=== PATIENT | female | born 1945 | race Caucasian/White ===

== ENCOUNTER 2019-02-08 20:29 | Emergency (ER) | payer MEDICARE, BC ==
[2019-02-08] MEDS ORDERED: Sodium Chloride 0.9% 10 ML Syringe FLUSH PRN (21:21)
[2019-02-08] MEDS ORDERED: methylPREDNISolone Sodium Succinate 125 MG/2 ML SDV IVPUSH ONE (21:23)
--- NOTE | 2019-02-08 22:04 | EDM.PDOC ---
ED HPI GENERAL MEDICAL PROBLEM - General Stated Complaint: SOB Time Seen by Provider: 02/08/19 20:50 Source of Information: Reports: Patient History Limitations: Reports: No Limitations - History of Present Illness INITIAL COMMENTS - FREE TEXT/NARRATIVE: 73-year-old female who reports cough with some difficulty breathing off and on for quite some time. She has seen her doctor in regard to this and was placed on inhalers for COPD. She reports that these inhalers have been helping. However , she feels that her cough has been somewhat worse over the past week and particularly was worse last night. She felt okay today and did her normal work. This afternoon she used her riding lawnmower and cut her grass and after this she began to knows that her breathing was worse and it got progressively worse with time and did not improve with her inhaler or with rest. It was to the point where she felt that she could not breathe and 911 was called. EMS arrived and found the patient with an O2 saturation of 79% on room air, with wheezes and with marked difficulty breathing. She was awake and alert. She was given nebulizer treatment there and en route and by the time that she arrived she was feeling much improved with decreased work of breathing. Her O2 saturations on nasal cannula at or liters per minute was 99-100%. She had no chest pain. She had no abdominal pain. She had no nausea or vomiting. She's had no arm or leg pains. No neck or jaw pain. In fact, she reports she has no pain at this time, rating it as a 0/10. There are no other associated signs or symptoms. There are no other modifying factors. 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 Treatments, Oxygen - Related Data Allergies Allergy/AdvReac Type Severity Reaction Status Date / Time No Known Allergies Allergy Verified 02/08/19 21:21 Home Meds: Home Meds ALPRAZolam [Xanax] 0.5 mg PO BID PRN 02/08/19 [History] Albuterol Sulfate [Proair Hfa] 1 puff IH Q4H PRN 02/08/19 [History] Escitalopram [Lexapro] 10 mg PO DAILY 02/08/19 [History] Metoprolol Succinate [Toprol XL] 25 mg PO DAILY 02/08/19 [History] Propylene Glycol/PEG 400/Pf [Systane 0.3-0.4% Eye Drops] 1 each OP ASDIRECTED PRN 02/08/19 [History] Umeclidinium Brm/Vilanterol Tr [Anoro Ellipta 62.5-25 MCG] 1 puff INH DAILY [History] Warfarin [Coumadin] 2.5 mg PO DAILY 02/08/19 [History] Warfarin [Coumadin] 5 mg PO SUMOWEFRSA 02/08/19 [History] atorvaSTATin [Lipitor] 20 tab PO DAILY 02/08/19 [History] Past Medical History Cardiovascular History: Reports: Afib (On Coumadin), High Cholesterol, Hypertension Respiratory History: Reports: COPD, Other (See Below) (No previous intubations.) Hematologic History: Reports: Anticoagulation Therapy (On Coumadin) Oncologic (Cancer) History: Reports: Breast - Past Surgical History Female Surgical History: Reports: Mastectomy (Right mastectomy) Social & Family History - Tobacco Use Smoking Status *Q: Current Every Day Smoker - Alcohol Use Alcohol Use History: Yes Alcohol Use Frequency: Daily (She drinks at least one beer a day and sometimes more.) - Living Situation & Occupation Social History Comment: She is here with multiple family members. She arrives via ambulance. ED ROS GENERAL - Review of Systems Review Of Systems: See Below Constitutional: Reports: Weakness (Associated with this episode of difficulty breathing.) HEENT: Reports: No Symptoms Respiratory: Reports: Shortness of Breath, Wheezing, Cough Cardiovascular: Reports: Lightheadedness Endocrine: Reports: No Symptoms GI/Abdominal: Reports: No Symptoms : Reports: No Symptoms Musculoskeletal: Reports: No Symptoms Skin: Reports: Diaphoresis (With this episode) Neurological: Reports: No Symptoms Hematologic/Lymphatic: Reports: Easy Bleeding (On chronic anticoagulation with Coumadin) Immunologic: Reports: No Symptoms ED EXAM, GENERAL - Physical Exam Exam: See Below Exam Limited By: No Limitations General Appearance: Alert, WD/WN, Mild Distress Eye Exam: Bilateral Eye: EOMI, Normal Inspection, PERRL Ears: Normal External Exam, Hearing Grossly Normal Nose: Normal Inspection, Normal Mucosa Throat/Mouth: Normal Inspection, Normal Voice, No Airway Compromise Head: Atraumatic, Normocephalic Neck: Normal Inspection, Supple, Non-Tender, Full Range of Motion Respiratory/Chest: No Accessory Muscle Use, Chest Non-Tender, Respiratory Distress (Mild), Wheezing (Bilaterally with decreased air movement. No retractions.) Cardiovascular: Normal Peripheral Pulses, Regular Rate, Rhythm, No Gallop, No JVD Peripheral Pulses: 2+: Radial (L), Radial (R), Dorsalis Pedis (L), Dorsalis Pedis (R) GI/Abdominal: Normal Bowel Sounds, Soft, Non-Tender, No Organomegaly, No Distention, No Mass Back Exam: Normal Inspection Extremities: Normal Inspection, Normal Range of Motion, Non-Tender, No Pedal Edema, Normal Capillary Refill Neurological: Alert, Oriented, CN II-XII Intact, Normal Cognition, No Motor/ Sensory Deficits Skin Exam: Warm, Dry, Intact, Normal Color, No Rash Lymphatic: No Adenopathy EKG INTERPRETATION EKG Date: 02/08/19 Time: 21:33 Rhythm: Other (sinus arrythmia) Rate (Beats/Min): 84 Grants: Normal P-Wave: Present QRS: Normal ST-T: Normal QT: Normal EKG Interpretation Comments: Normal sinus rhythm with a rate of 84. There is a normal axis. There are normal intervals including a normal EKG. There is slight sinus arrhythmia. There is no current of injury or ischemia present. Course - Orders/Labs/Meds Orders: Active Orders 24 hr Category Date Time Status EKG Documentation Completion [RC] ASDIRECTED Care 02/08/19 21:23 Active Chest 1V Frontal [CR] Stat Exams 02/08/19 21:21 Taken Sodium Chloride 0.9% [Saline Flush] Med 02/08/19 21:21 Active 10 ml FLUSH ASDIRECTED PRN Peripheral IV Insertion Adult [OM.PC] Routine Oth 02/08/19 21:21 Ordered EKG 12 Lead [EK] Routine Ther 02/08/19 21:21 Ordered Medication Orders Sodium Chloride (Saline Flush) 10 ml FLUSH ASDIRECTED PRN PRN Reason: Keep Vein Open Last Admin: 02/08/19 22:19 Dose: 10 ml Labs: Laboratory Tests 02/08/19 02/08/19 02/08/19 Range/Units 20:35 20:35 20:35 WBC 23.8 H (4.5-12.0) X10-3/uL RBC 4.79 (3.23-5.20) x10(6)uL Hgb 15.6 H (11.5-15.5) g/dL Hct 45.2 (30.0-51.3) % MCV 94.2 (80-96) fL MCH 32.6 (27.7-33.6) pg MCHC 34.6 (32.2-35.4) g/dL RDW 13.3 (11.5-15.5) % Plt Count 399 H (125-369) X10(3)uL MPV 8.3 (7.4-10.4) fL Neut % (Auto) Nuclear Physician Lymph % (Auto) Nuclear Physician [place] % (Auto) Nuclear Physician Eos % (Auto) Nuclear Physician Baso % (Auto) Nuclear Physician Neut # (Auto) Nuclear Physician Lymph # (Auto) Nuclear Physician [place] # (Auto) Nuclear Physician Eos # (Auto) Nuclear Physician Baso # (Auto) Nuclear Physician Add Manual Diff Yes Neutrophils % (Manual) 81 (46-82) % Band Neutrophils % 4 (0-6) % Lymphocytes % (Manual) 10 L (13-37) % Monocytes % (Manual) 3 L (4-12) % Eosinophils % (Manual) 1 (0-5) % Basophils % (Manual) 1 (0-2) % PT 13.1 H (8.7-11.1) INR 1.35 H (0.89-1.13) Sodium 140 (135-145) mmol/L Potassium 4.1 (3.5-5.3) mmol/L Chloride 103 (100-110) mmol/L Carbon Dioxide 30 (21-32) mmol/L BUN 20 H (7-18) mg/dL Creatinine 0.4 L (0.55-1.02) mg/dL Est Cr Clr Drug Dosing TNP Estimated GFR (MDRD) > 60 (>60) BUN/Creatinine Ratio 50.0 H (9-20) Glucose 157 H (80-116) mg/dL Calcium 9.1 (8.6-10.2) mg/dL Total Bilirubin 0.5 (0.1-1.3) mg/dL AST 29 H (5-25) IU/L ALT 51 H (12-36) U/L Alkaline Phosphatase 82 (56-112) IU/L Troponin I (<0.017-0.056) ng/mL NT-Pro-B Natriuret Pep (<=125) pg/mL Total Protein 7.5 (6.0-8.0) g/dL Albumin 4.3 (3.2-4.6) g/dL Globulin 3.2 g/dL Albumin/Globulin Ratio 1.3 02/08/19 Range/Units 20:35 WBC (4.5-12.0) X10-3/uL RBC (3.23-5.20) x10(6)uL Hgb (11.5-15.5) g/dL Hct (30.0-51.3) % MCV (80-96) fL MCH (27.7-33.6) pg MCHC (32.2-35.4) g/dL RDW (11.5-15.5) % Plt Count (125-369) X10(3)uL MPV (7.4-10.4) fL Neut % (Auto) Lymph % (Auto) [place] % (Auto) Eos % (Auto) Baso % (Auto) Neut # (Auto) Lymph # (Auto) [place] # (Auto) Eos # (Auto) Baso # (Auto) Add Manual Diff Neutrophils % (Manual) (46-82) % Band Neutrophils % (0-6) % Lymphocytes % (Manual) (13-37) % Monocytes % (Manual) (4-12) % Eosinophils % (Manual) (0-5) % Basophils % (Manual) (0-2) % PT (8.7-11.1) INR (0.89-1.13) Sodium (135-145) mmol/L Potassium (3.5-5.3) mmol/L Chloride (100-110) mmol/L Carbon Dioxide (21-32) mmol/L BUN (7-18) mg/dL Creatinine (0.55-1.02) mg/dL Est Cr Clr Drug Dosing Estimated GFR (MDRD) (>60) BUN/Creatinine Ratio (9-20) Glucose (80-116) mg/dL Calcium (8.6-10.2) mg/dL Total Bilirubin (0.1-1.3) mg/dL AST (5-25) IU/L ALT (12-36) U/L Alkaline Phosphatase (56-112) IU/L Troponin I 0.095 H* (<0.017-0.056) ng/mL NT-Pro-B Natriuret Pep 317 H (<=125) pg/mL Total Protein (6.0-8.0) g/dL Albumin (3.2-4.6) g/dL Globulin g/dL Albumin/Globulin Ratio Meds: Medications Generic Name Dose Route Start Last Admin Trade Name Freq PRN Reason Stop Dose Admin Sodium Chloride 10 ml 02/08/19 21:21 02/08/19 22:19 Saline Flush FLUSH 10 ml ASDIRECTED PRN Administration Keep Vein Open Discontinued Medications Generic Name Dose Route Start Last Admin Trade Name Freq PRN Reason Stop Dose Admin Aspirin 324 mg 02/08/19 23:25 02/08/19 23:27 Aspirin PO 02/08/19 23:26 324 mg ONETIME ONE Administration Methylprednisolone Sodium Succinate 125 mg 02/08/19 21:23 02/08/19 22:18 Solu-Medrol IVPUSH 02/08/19 21:24 125 mg ONETIME ONE Administration - Radiology Interpretation Free Text/Narrative:: Portable chest x-ray showed vague opacity in the left lung which could be soft tissue. No increased pulmonary vascularity. Her heart size does appear to be large even given the portable film. - Re-Assessments/Exams Free Text/Narrative Re-Assessment/Exam: 02/08/19 2300: Patient's breathing is improved. Her O2 saturation dip to the 87- 88% on room air and improve back to 98% on 3 L/m via nasal cannula of oxygen. No increasing work of breathing. No chest pain at this time or prior. Her troponin is borderline. Her chest x-ray does show some evidence of cardiomegaly. The patient will need admission for her respiratory failure related to her COPD exacerbation. The borderline troponin most probably is a slight elevation related to strain related to her COPD exacerbation, however, she has never had this before. There is no history of ischemic heart disease in this patient and this could represent ischemic heart disease and potentially a non-STEMI. Because of this, the patient would be best served to be admitted to a facility with cardiology specially services which are not available at [facility]. I discussed this with the patient and with her family and they understand the need for transfer and are in agreement with this plan. They would prefer I discussed her case with the doctors at [facility]. 02/08/19 23:20: I discussed the patient's case with Dr. Mooney, hospitalist at [facility], and he has agreed to accept the patient in transfer. The patient has been given aspirin 324 mg by mouth, Solu-Medrol 125 mg IV and has been maintained on oxygen at 3 L/m via nasal cannula. The patient will be transferred via ambulance to [facility] for direct admission. Departure - Departure Time of Disposition: 23:30 Disposition: DC/Tfer to [facility] 02 Condition: Fair Clinical Impression: Acute exacerbation of chronic obstructive pulmonary disease (COPD), Acute respiratory failure with hypoxia, Elevated troponin - Discharge Information Referrals: PCP,None [Primary Care Provider] - Critical Care Note - Critical Care Note Total Time (mins): 35 - My Orders Last 24 Hours: My Active Orders 02/08/19 21:21 Chest 1V Frontal [CR] Stat Sodium Chloride 0.9% [Saline Flush] 10 ml FLUSH ASDIRECTED PRN Peripheral IV Insertion Adult [OM.PC] Routine EKG 12 Lead [EK] Routine 02/08/19 21:23 EKG Documentation Completion [RC] ASDIRECTED - Assessment/Plan Last 24 Hours: My Active Orders 02/08/19 21:21 Chest 1V Frontal [CR] Stat Sodium Chloride 0.9% [Saline Flush] 10 ml FLUSH ASDIRECTED PRN Peripheral IV Insertion Adult [OM.PC] Routine EKG 12 Lead [EK] Routine 02/08/19 21:23 EKG Documentation Completion [RC] ASDIRECTED
[2019-02-08] MEDS ORDERED: Aspirin 81 MG Tab.Chew PO ONE (23:25)
== END 2019-02-09 00:10 ==
LOC: EDBD → EDUNIT# 20:29 → FB.ED 20:29
DX: J96.01 Acute respiratory failure with hypoxia (principal); J44.1 Chronic obstructive pulmonary disease with (acute) exacerbation; R79.89 Other specified abnormal findings of blood chemistry; I48.91 Unspecified atrial fibrillation; E78.00 Pure hypercholesterolemia, unspecified; I10 Essential (primary) hypertension; J44.9 Chronic obstructive pulmonary disease, unspecified; F17.200 Nicotine dependence, unspecified, uncomplicated; Z79.899 Other long term (current) drug therapy; Z79.01 Long term (current) use of anticoagulants
CPT/HCPCS: 36415; 71045; 80053; 83880; 84484; 85025; 85610; 93005; 96374; 99285; 99291; A9270; J2930

== ENCOUNTER 2019-07-23 21:16 | Emergency (ER) | payer MEDICARE, BC ==
--- NOTE | 2019-07-23 21:31 | EDM.PDOC ---
ED HPI GENERAL MEDICAL PROBLEM - General Stated Complaint: SOB Time Seen by Provider: 07/23/19 21:29 Source of Information: Reports: Patient History Limitations: Reports: No Limitations - History of Present Illness INITIAL COMMENTS - FREE TEXT/NARRATIVE: 74-year-old female who reports for the past 2 nights she has had feelings of wheezing that have been worse when she is trying to go to bed. She uses her inhaler and it seems to improve. Tonight beginning about 5-6 PM she started to have lungs of wheezing and difficulty breathing and it progressively worsened after this until she felt that she could not breathe and that was at about 8:30 PM tonight. She called EMS and EMS arrived to find the patient with some difficulty breathing and wheezing but with O2 saturation of 92-93% on room air. She didn't get a DuoNeb en route and was placed on supplemental oxygen and was also given Solu-Medrol 125 mg IV. By the time she arrives to the emergency department, her breathing is much improved and she feels that she is still wheezing but is closer to her baseline. She had no chest pain during this episode. She had no feeling of racing heart rate. It has some tightness in her chest that she felt was constriction in breathing. No nausea or vomiting. No nasal congestion. No cold-like symptoms. She does have a cough every day and it did not seem to be worsening. She has had no phlegm production. No fevers or chills. He has no pain right now. She rates her pain as a 0/10. There are no other associated signs or symptoms. There are no other modifying factors. Onset: Other (2 days ago) Duration: Getting Worse Location: Reports: Other (No pain. Just difficulty breathing.) Quality: Reports: Other (Tightness with breathing) Severity: Moderate (to severe.) Improves with: Reports: None Worsens with: Reports: None Context: Reports: Other (As above) Associated Symptoms: Reports: No Other Symptoms (Except as above) Treatments CORE RESCUER: Reports: Breathing Treatments (Per EMS), Home Treatments ( Inhaler per patient at home prior to EMS with no real relief), Other Medication( s) (Solu-Medrol IV per EMS), Oxygen (Per EMS) - Related Data Allergies Allergy/AdvReac Type Severity Reaction Status Date / Time No Known Allergies Allergy Verified 07/23/19 21:37 Home Meds: Home Meds ALPRAZolam [Xanax] 0.5 mg PO BID PRN 02/08/19 [History] Metoprolol Succinate [Toprol XL] 25 mg PO DAILY 02/08/19 [History] Propylene Glycol/PEG 400/Pf [Systane 0.3-0.4% Eye Drops] 1 each OP ASDIRECTED PRN 02/08/19 [History] atorvaSTATin [Lipitor] 20 tab PO DAILY 02/08/19 [History] Apixaban [Eliquis] 5 mg PO BID 07/23/19 [History] Levalbuterol Tartrate [Levalbuterol Tartrate Hfa] 2 puff INH Q4H PRN 07/23/19 [ History] Tiotropium [place] [Spiriva Respimat] 2 puff INH DAILY 07/23/19 [History] Doxycycline Hyclate 100 mg PO BID 7 Days #14 tablet 07/24/19 [Rx] predniSONE [Prednisone] 50 mg PO QAM 5 Days #5 tablet 07/24/19 [Rx] Past Medical History Cardiovascular History: Reports: Afib (On Coumadin), High Cholesterol, Hypertension Respiratory History: Reports: COPD Hematologic History: Reports: Anticoagulation Therapy (On Eliquis) Oncologic (Cancer) History: Reports: Breast - Past Surgical History Cardiovascular Surgical History: Reports: Other (See Below) (Cardiac catheterization with reported clean coronary arteries per the patient in January 2019) Female Surgical History: Reports: Mastectomy (Right mastectomy) Social & Family History - Tobacco Use Smoking Status *Q: Former Smoker (Quit in January 2019. She was a heavy smoker prior to this.) - Alcohol Use Alcohol Use History: Yes Alcohol Use Frequency: Weekly (Beer) - Living Situation & Occupation Living situation: Reports: with Family Occupation: Retired ED ROS GENERAL - Review of Systems Review Of Systems: See Below Constitutional: Reports: No Symptoms HEENT: Reports: No Symptoms Respiratory: Reports: Shortness of Breath, Wheezing Cardiovascular: Reports: No Symptoms Endocrine: Reports: No Symptoms GI/Abdominal: Reports: No Symptoms : Reports: No Symptoms Musculoskeletal: Reports: No Symptoms (No leg swelling) Skin: Reports: No Symptoms (No diaphoresis) Neurological: Reports: No Symptoms Hematologic/Lymphatic: Reports: Easy Bleeding (Patient is on Eliquis) Immunologic: Reports: No Symptoms ED EXAM, GENERAL - Physical Exam Exam: See Below Exam Limited By: No Limitations General Appearance: Alert, WD/WN, Mild Distress Eye Exam: Bilateral Eye: EOMI, Normal Inspection, PERRL Ears: Normal External Exam, Hearing Grossly Normal Ear Exam: Bilateral Ear: Auricle Normal Nose: Normal Inspection, Normal Mucosa, No Blood Throat/Mouth: Normal Inspection, Normal Lips, Normal Oropharynx, Normal Voice, No Airway Compromise Head: Atraumatic, Normocephalic Neck: Normal Inspection, Supple, Non-Tender, Full Range of Motion Respiratory/Chest: No Respiratory Distress, No Accessory Muscle Use, Wheezing ( Bilaterally). No: Crackles, Rales Cardiovascular: Normal Peripheral Pulses, No Gallop, No JVD, No Murmur, Tachycardia, Irregularly Irregular Peripheral Pulses: 2+: Radial (L), Radial (R), Dorsalis Pedis (L), Dorsalis Pedis (R) GI/Abdominal: Normal Bowel Sounds, Soft, Non-Tender, No Distention, No Mass Back Exam: Normal Inspection, Full Range of Motion Extremities: Normal Inspection, Normal Range of Motion, Non-Tender, No Pedal Edema, Normal Capillary Refill Neurological: Alert, Oriented, CN II-XII Intact, Normal Cognition, No Motor/ Sensory Deficits Skin Exam: Warm, Dry, Intact, Normal Color, No Rash EKG INTERPRETATION EKG Date: 07/23/19 Time: 21:54 Rhythm: A-Fib (With RVR) Rate (Beats/Min): 125 [place]: Normal P-Wave: Absent QRS: RBBB ST-T: Other (Nonspecific ST-T changes) QT: Prolonged (QTc) Comparison: Change From Previous EKG (EKG a on 02/08/2019 was sinus rhythm. The A. fib on this EKG is new but the patient does have a history of A. fib.) Course - Vital Signs Last Recorded V/S: Last Vital Signs Temp 36.4 C 07/23/19 21:20 Pulse 116 H 07/24/19 00:15 Resp 20 07/23/19 21:20 BP 125/53 L 07/24/19 00:15 Pulse Ox 97 07/23/19 23:15 - Orders/Labs/Meds Orders: Active Orders 24 hr Category Date Time Status EKG Documentation Completion [RC] ASDIRECTED Care 07/23/19 21:47 Active RT Aerosol Therapy [RC] ASDIRECTED Care 07/23/19 21:47 Active Chest 2V [CR] Stat Exams 07/23/19 21:45 Taken Sodium Chloride 0.9% [Saline Flush] Med 07/23/19 21:35 Active 10 ml FLUSH ASDIRECTED PRN EKG 12 Lead [EK] Routine Ther 07/23/19 21:45 Ordered Medication Orders Sodium Chloride (Saline Flush) 10 ml FLUSH ASDIRECTED PRN PRN Reason: Keep Vein Open Last Admin: 07/23/19 23:35 Dose: 10 ml Labs: Laboratory Tests 07/23/19 07/23/19 07/23/19 Range/Units 22:05 22:05 22:05 WBC 23.3 H (4.5-12.0) X10-3/uL RBC 4.43 (3.23-5.20) x10(6)uL Hgb 13.6 (11.5-15.5) g/dL Hct 41.3 (30.0-51.3) % MCV 93.3 (80-96) fL MCH 30.8 (27.7-33.6) pg MCHC 33.0 (32.2-35.4) g/dL RDW 13.3 (11.5-15.5) % Plt Count 376 H (125-369) X10(3)uL MPV 8.3 (7.4-10.4) fL Add Manual Diff Yes Neutrophils % (Manual) 80 (46-82) % Band Neutrophils % 4 (0-6) % Lymphocytes % (Manual) 8 L (13-37) % Monocytes % (Manual) 4 (4-12) % Eosinophils % (Manual) 4 (0-5) % POC VBG pH (7.31-7.41) POC VBG pCO2 (41-51) mmHG POC VBG HCO3 (23-28) mmol/L POC VBG Total CO2 (24-29) mmol/L POC VBG Base Excess (-2-3) mmol/L Sodium 141 (135-145) mmol/L Potassium 4.0 (3.5-5.3) mmol/L Chloride 101 (100-110) mmol/L Carbon Dioxide 29 (21-32) mmol/L BUN 23 H (7-18) mg/dL Creatinine 0.9 (0.55-1.02) mg/dL Est Cr Clr Drug Dosing TNP Estimated GFR (MDRD) > 60 (>60) BUN/Creatinine Ratio 25.6 H (9-20) Glucose 113 (80-116) mg/dL Calcium 9.4 (8.6-10.2) mg/dL Total Bilirubin 0.5 (0.1-1.3) mg/dL AST 19 D (5-25) IU/L ALT 29 D (12-36) U/L Alkaline Phosphatase 59 (56-112) IU/L Troponin I < 0.017 L (<0.017-0.056) ng/mL C-Reactive Protein < 0.2 L (0.5-0.9) mg/dL NT-Pro-B Natriuret Pep 911 H (<=450) pg/mL Total Protein 7.4 (6.0-8.0) g/dL Albumin 4.4 (3.2-4.6) g/dL Globulin 3.0 g/dL Albumin/Globulin Ratio 1.5 07/23/ Range/Units 22:05 WBC (4.5-12.0) X10-3/uL RBC (3.23-5.20) x10(6)uL Hgb (11.5-15.5) g/dL Hct (30.0-51.3) % MCV (80-96) fL MCH (27.7-33.6) pg MCHC (32.2-35.4) g/dL RDW (11.5-15.5) % Plt Count (125-369) X10(3)uL MPV (7.4-10.4) fL Add Manual Diff Neutrophils % (Manual) (46-82) % Band Neutrophils % (0-6) % Lymphocytes % (Manual) (13-37) % Monocytes % (Manual) (4-12) % Eosinophils % (Manual) (0-5) % POC VBG pH 7.55 H (7.31-7.41) POC VBG pCO2 26.3 L (41-51) mmHG POC VBG HCO3 23.0 (23-28) mmol/L POC VBG Total CO2 24 (24-29) mmol/L POC VBG Base Excess 1 (-2-3) mmol/L Sodium (135-145) mmol/L Potassium (3.5-5.3) mmol/L Chloride (100-110) mmol/L Carbon Dioxide (21-32) mmol/L BUN (7-18) mg/dL Creatinine (0.55-1.02) mg/dL Est Cr Clr Drug Dosing Estimated GFR (MDRD) (>60) BUN/Creatinine Ratio (9-20) Glucose (80-116) mg/dL Calcium (8.6-10.2) mg/dL Total Bilirubin (0.1-1.3) mg/dL AST (5-25) IU/L ALT (12-36) U/L Alkaline Phosphatase (56-112) IU/L Troponin I (<0.017-0.056) ng/mL C-Reactive Protein (0.5-0.9) mg/dL NT-Pro-B Natriuret Pep (<=450) pg/mL Total Protein (6.0-8.0) g/dL Albumin (3.2-4.6) g/dL Globulin g/dL Albumin/Globulin Ratio Meds: Medications Generic Name Dose Route Start Last Admin Trade Name Freq PRN Reason Stop Dose Admin Sodium Chloride 10 ml 07/23/19 21:35 07/23/19 23:35 Saline Flush FLUSH 10 ml ASDIRECTED PRN Administration Keep Vein Open Discontinued Medications Generic Name Dose Route Start Last Admin Trade Name Freq PRN Reason Stop Dose Admin Doxycycline Hyclate 100 mg 07/24/19 00:12 07/24/19 00:18 Vibra-Tabs PO 07/24/19 00:13 100 mg ONETIME ONE Administration Levalbuterol HCl 1.25 mg 07/23/19 21:47 07/23/19 22:19 Xopenex NEB 07/23/19 21:48 1.25 mg ONETIME ONE Administration Metoprolol Tartrate 5 mg 07/23/19 23:18 07/23/19 23:28 Lopressor IVPUSH 07/23/19 23:19 5 mg ONETIME ONE Administration Metoprolol Tartrate 25 mg 07/24/19 00:12 07/24/19 00:15 Lopressor PO 07/24/19 00:13 25 mg ONETIME ONE Administration - Radiology Interpretation Free Text/Narrative:: Chest x-ray PA and lateral shows no acute disease. - Re-Assessments/Exams Free Text/Narrative Re-Assessment/Exam: 07/23/19 23:15: The patient remains in A. fib with RVR. Her heart rate is in the 130s to 140s. She is, however, breathing much better. Her O2 saturations are maintaining between 95 and 98% on room air. She had the DuoNeb en route and had a Xopenex neb while here in the emergency department. Apparently, about a month ago her ice skater decreased her metoprolol from 50 mg a day to 25 mg a day secondary to her heart rate being in the 40-50 range. The patient is set up to see the EP ice skater on 07/29/2019. Her white blood cell count was 23.3 but I think this represents margination from the Solu-Medrol that she received coming in. Her CRP was normal. Her electrolytes were normal. Her BUN and creatinine were normal. The chest x-ray showed no evidence of pneumonia. I will plan on giving the patient metoprolol 5 mg IV to try to slow her heart rate to the 100-110 range. If she remains traumatic with good breathing and the heart rate is able to be lowered with the additional metoprolol, I will have her increase her metoprolol to 25 mg tablets, 1-1/2 tablets daily until she sees Dr. Hoff, the EP ice skater next week. I would also place the patient on doxycycline and prednisone to treat for COPD exacerbation. 07/24/19 00:25: Pulse rate is mostly in the 110s now. She ambulated well and her breathing is much improved. I am going to give her another 25 mg of metoprolol tartrate by mouth now and feel that she may be discharged at this time. The patient is wholeheartedly supporting this and wants to go home. I will have her increase her metoprolol XL to 37.5 mg daily with the first dose in the morning. I have stressed that if her pulse rate is persistently greater than 120, her breathing worsens, she develops chest tightness or weakness or dizziness, she should come back to the emergency department that time for further evaluation and treatment. Departure - Departure Time of Disposition: 00:30 Disposition: Home, Self-Care 01 Condition: Good (Improved) Clinical Impression: COPD with acute exacerbation Atrial fibrillation Qualifiers: Atrial fibrillation type: unspecified Qualified Code(s): I48.91 - Unspecified atrial fibrillation - Discharge Information Prescriptions: Doxycycline Hyclate 100 mg PO BID 7 Days #14 tablet predniSONE [Prednisone] 50 mg PO QAM 5 Days #5 tablet Instructions: Chronic Obstructive Pulmonary Disease, [id number], Atrial Fibrillation, [id number] Referrals: PCP,None [Primary Care Provider] - Additional Instructions: Your chest x-ray showed no evidence of pneumonia. Your blood tests were reassuring. Your breathing improved with the medications that you were given by the ambulance and by us in the emergency department. Your heart rhythm is atrial fibrillation now and your heart rate was somewhat elevated as we discussed. We gave you medicine to decrease it and I want you to take 1-1/2 tablets of your metoprolol 25 mg daily with the first dose in the morning. Make sure you last picker your Levoalbuterol inhaler from the pharmacy tomorrow. Other medications as prescribed (doxycycline, prednisone). Increase your fluid intake. Rest. If your pulse rate remains higher than 120 consistently, your breathing worsens, you develop a high fever, you develop chest pain or any other concerning sign or symptom, you should come back to the emergency department for evaluation. Keep your appointment with Dr. Hoff this coming week. - My Orders Last 24 Hours: My Active Orders 07/23/19 21:35 Sodium Chloride 0.9% [Saline Flush] 10 ml FLUSH ASDIRECTED PRN 07/23/19 21:45 Chest 2V [CR] Stat EKG 12 Lead [EK] Routine 07/23/19 21:47 EKG Documentation Completion [RC] ASDIRECTED RT Aerosol Therapy [RC] ASDIRECTED - Assessment/Plan Last 24 Hours: My Active Orders 07/23/19 21:35 Sodium Chloride 0.9% [Saline Flush] 10 ml FLUSH ASDIRECTED PRN 07/23/19 21:45 Chest 2V [CR] Stat EKG 12 Lead [EK] Routine 07/23/19 21:47 EKG Documentation Completion [RC] ASDIRECTED RT Aerosol Therapy [RC] ASDIRECTED
[2019-07-23] MEDS ORDERED: Sodium Chloride 0.9% 10 ML Syringe FLUSH PRN (21:35)
[2019-07-23] MEDS ORDERED: Levalbuterol HCl 1.25 MG/3 ML Neb NEB ONE (21:47)
[2019-07-23] MEDS ORDERED: Metoprolol Tartrate 5 MG/5 ML SDV IVPUSH ONE (23:18)
[2019-07-24] MEDS ORDERED: Doxycycline 100 MG Tab PO ONE (00:12)
[2019-07-24] MEDS ORDERED: Metoprolol Tartrate 25 MG Tab PO ONE (00:12)
--- NOTE | 2019-07-26 12:10 | CR ---
INDICATION: Shortness of breath, cough. CHEST: PA and lateral views of the chest, 07/23/19, were compared with AP view of 02/08/19. The heart appears to be at the upper limits of normal in size. No specific chamber enlargement was noted. Calcifications are noted in the arch of the aorta and descending thoracic aorta. Somewhat diminished bone density is suggested, which may represent osteoporosis and should be correlated clinically. There are some bridging hyperostotic changes in the mid thoracic spine at one level. Slight flattened diaphragm leaves, slightly prominent AP diameter, and minimal degree of hyperaeration suggests COPD. Clips are again noted at the right axilla with decreased breast tissue on the right, compatible with either lumpectomy or mastectomy for breast CA. This should be correlated clinically. A definite active infiltrate or effusion or finding to strongly suggest metastatic disease was not identified. Pulmonary markings are similar to the previous study. IMPRESSION: 1. No definite acute process or evidence of metastatic disease. 2. Probable ASHD. 3. Probable osteoporosis. 4. Probable COPD. 5. Findings felt to be compatible with right breast CA and axillary node dissection - correlate clinically. MTDD
== END 2019-07-24 00:55 | disposition home or self-care (01) ==
LOC: FB.ED 21:16
DX: J44.1 Chronic obstructive pulmonary disease with (acute) exacerbation (principal); I48.91 Unspecified atrial fibrillation; I10 Essential (primary) hypertension; E78.5 Hyperlipidemia, unspecified; Z79.01 Long term (current) use of anticoagulants; Z79.899 Other long term (current) drug therapy; Z79.52 Long term (current) use of systemic steroids; Z87.891 Personal history of nicotine dependence
CPT/HCPCS: 36415; 71046; 80053; 82803; 83880; 84484; 85025; 86140; 93005; 94640; 96374; 99285; A9270; J3490; J7612